=== PATIENT | male | born 1990 | race Caucasian/White ===

== ENCOUNTER 2018-05-12 02:27 | Emergency (ER) | payer OTHER, SELFPAY ==
[2018-05-12] MEDS ORDERED: methylPREDNISolone Acetate 40 mg/ml Vial ONE (03:18)
[2018-05-12] MEDS ORDERED: Naproxen 500 MG TAB ONE (03:18)
--- NOTE | 2018-05-12 07:46 | RAD ---
TWO VIEWS OF THE CHEST: DATE: 05/12/2018. COMPARISON: None. HISTORY: Chest pain. FINDINGS: No pneumothorax, pleural fluid, focal consolidation, or alveolar edema. Heart and mediastinal contou r is grossly unremarkable. IMPRESSION: No acute findings. POS: [facility]
== END 2018-05-12 03:29 | disposition home or self-care (01) ==
LOC: NAV ERS 02:27
DX: R09.1 Pleurisy (principal); F41.9 Anxiety disorder, unspecified; F43.10 Post-traumatic stress disorder, unspecified
CPT/HCPCS: 71046; 93005; 96372; J1030